=== PATIENT | female | born 1990 | race Caucasian/White ===

== ENCOUNTER 2021-07-22 17:46 | Emergency (ER) | payer OTHER ==
[~2021-07-22] VITALS: Ht 160 cm; Wt 74.8 kg
[2021-07-22] MEDS ORDERED: TYLENOL325 M1 PO (18:46)
[2021-07-22] MEDS ORDERED: NAPROXEN250 MG PO (18:46)
== END 2021-07-22 19:12 | disposition home or self-care (01) ==
LOC: ED 17:46
DX: S62.613A Displaced fracture of proximal phalanx of left middle finger, initial encounter for closed fracture (principal); W23.0XXA Caught, crushed, jammed, or pinched between moving objects, initial encounter; Y93.89 Activity, other specified; Y92.89 Other specified places as the place of occurrence of the external cause; Y99.8 Other external cause status